=== PATIENT | female | born 1980 | race Caucasian/White ===

== ENCOUNTER 2019-11-10 07:48 | Emergency (ER) | payer MEDICAID ==
--- NOTE | 2019-11-10 08:28 | RADIOLOGY REPORT (SQ) ---
EXAM DESCRIPTION: CHEST SINGLE VIEW COMPLETED DATE/TIME: 11/10/2019 8:07 am REASON FOR STUDY: stroke symptoms COMPARISON: None. EXAM PARAMETERS: NUMBER OF VIEWS: One view. TECHNIQUE: Single frontal radiographic view of the chest acquired. RADIATION DOSE: NA LIMITATIONS: None. FINDINGS: LUNGS AND PLEURA: No opacities, masses or pneumothorax. No pleural effusion. MEDIASTINUM AND HILAR STRUCTURES: No masses. Contour normal. HEART AND VASCULAR STRUCTURES: Heart normal in size. Normal vasculature. BONES: No acute findings. HARDWARE: None in the chest. OTHER: Metallic density overlies the right chest, presumably external to the patient. IMPRESSION: No evidence of acute intrathoracic process. TECHNICAL DOCUMENTATION: JOB ID: [id number] 2010 [employer]- All Rights Reserved Reading location - IP/workstation name: [email or web address]
--- NOTE | 2019-11-10 08:31 | RADIOLOGY REPORT (SQ) ---
EXAM DESCRIPTION: CT HEAD WITHOUT COMPLETED DATE/TIME: 11/10/2019 8:17 am REASON FOR STUDY: stroke symptoms COMPARISON: None. TECHNIQUE: Axial images acquired through the brain without intravenous contrast. Images reviewed wi th bone, brain and subdural windows. Images stored on PACS. All CT scanners at this facility use dose modulation, iterative reconstruction, and/or weight based d osing when appropriate to reduce radiation dose to as low as reasonably achievable (ALARA). [facility]: Dose Right [facility]: CareDose [facility]: Dose Right [facility]: Teradose 4D [facility]: Labelby.me RADIATION DOSE: CT Rad equipment meets quality standard of care and radiation dose reduction techniq ues were employed. CTDIvol: 53.2 mGy. DLP: 1097 mGy-cm. mGy. LIMITATIONS: None. FINDINGS: VENTRICLES: Normal size and contour. CEREBRUM: No masses. No hemorrhage. No midline shift. No evidence for acute infarction. Normal gra y/white matter differentiation. No areas of low density in the white matter. CEREBELLUM: No masses. No hemorrhage. No alteration of density. No evidence for acute infarction. EXTRAAXIAL SPACES: No fluid collections. No masses. ORBITS AND GLOBE: No intra- or extraconal masses. Normal contour of globe without masses. CALVARIUM: No fracture. PARANASAL SINUSES: No fluid or mucosal thickening. SOFT TISSUES: No mass or hematoma. OTHER: No other significant finding. IMPRESSION: No evidence of acute intracranial process. Findings discussed with Melissa at 0824 hours on 11/10/2019. EVIDENCE OF ACUTE STROKE: NO. COMMENT: Quality ID # [id number]: Final reports with documentation of one or more dose reduction techniques (e.g., Automated exposure control, adjustment of the mA and/or kV according to patient size, use of iterative reconstruction technique) TECHNICAL DOCUMENTATION: JOB ID: [id number] 2010 [employer]- All Rights Reserved Reading location - IP/workstation name: [email or web address]
[2019-11-10] MEDS ORDERED: PREDNISONE 20 MG TABLET PO ONE (08:42)
[2019-11-10] MEDS ORDERED: VALACYCLOVIR HCL 500 MG TABLET PO ONE (08:42)
[2019-11-10] MEDS ORDERED: METHADONE HCL 10 MG TABLET PO ONE (08:43)
--- NOTE | 2019-11-10 08:52 | ER Document Report ---
ED General - General Chief Complaint: S/S of Possible Stroke Stated Complaint: POSSIBLE STROKE Time Seen by Provider: 11/10/19 08:29 TRAVEL OUTSIDE OF THE U.S. IN LAST 30 DAYS: No - HPI Notes: Patient is a 39-year-old female who presents to the emergency department. She just moved to the area. She noticed 2 days ago that the left side of her face was not moving. She went to an urgent care yesterday and was told she may be having a stroke. She denies any difficulty seeing, speaking, swallowing. M oving arms and legs without difficulty. No recent head trauma. Her primary concern is that she needs methadone. She has been on methadone for several years. 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 She has been stable on 150 mg. Patient states she has been tearful, hurting all over, jittery, nauseated. She went to the methadone clinic, did not have enough money to join. She has been told that she can come back on Friday. At that point she will have the money. - Related Data Allergies/Adverse Reactions: No Known Allergies Allergy (Verified 11/10/19 08:47) Home Medications: REMERON, EFFEXOR, HYDROXYZINE, MINIPRESS, HX OF METHADONE Past Medical History - General Information source: Patient - Social History Smoking Status: Current Every Day Smoker Frequency of alcohol use: None Drug Abuse: Bath salts, Heroin, Other - In remission per patient Family History: Reviewed & Not Pertinent Patient has suicidal ideation: No Patient has homicidal ideation: No Psychiatric Medical History: Reports: Hx Anxiety, Hx Bipolar Disorder Review of Systems - Review of Systems Constitutional: See HPI Gastrointestinal: See HPI Neurological/Psychological: See HPI Physical Exam - Vital signs Vitals: Pulse Ox 95 11/10/19 07:52 - Notes Notes: Vital signs reviewed, please refer to chart. Head is normocephalic, atraumatic. Pupils equal round, reactive to light. Neck is supple without meningismus. Heart is regular rate and rhythm. Lungs are clear to auscultation bilaterally. Abdomen is soft, nontender, normoactive bowel sounds throughout. Extremities without cyanosis, clubbing. Posterior calves are nontender. Peripheral pulses are equal. Skin is warm and dry. Patient has an obvious facial nerve palsy on the left, with inability to raise her eyebrow, close her eye, smile. The remainder of cranial nerves II to XII are grossly intact without focal neurological deficits. Patient is awake alert, oriented x3. Strength was 5/5 all upper and lower extremities. Sensation is intact. Intact [id number], rapid on movements, [id number]. Reflexes are symmetrical. No pronator drift. Course - Re-evaluation Re-evalutation: 11/10/19 08:51 Patient presents to the emergency department for evaluation. Based on protocol she was initially called as a stroke alert. I went in to evaluate the patient. She is a clear Stout's palsy. Stroke orders were canceled. She did already have a CT scan of the head, which was reasonable, which was found to be unremarkable. Patient is stable at this time. Given that her onset was only in the last 2 days, I did ahead and order Valtrex and prednisone. Patient also was given 1 dose of methadone. I explained to her that I am not licensed to prescribe it, but I could give her 1 dose here. She is already planning on going to the methadone clinic on Friday. At this point she is stable. We will monitor for response to methadone. 11/10/19 10:20 Patient stable. Feeling improved, no further vomiting. Given single dose of methadone, she is to follow-up as discussed, return to the ED with worsening. - Vital Signs Vital signs: Temp Pulse Resp BP Pulse Ox 17 120/93 H 95 11/10/19 09:31 11/10/19 09:31 11/10/19 09:31 - Laboratory Result Diagrams: 11/10/19 08:32 11/10/19 08:32 - Diagnostic Test Radiology reviewed: Reports reviewed Radiology results interpreted by me: 11/10/19 08:52 Chest X-Ray 11/10/19 07:54 IMPRESSION: No evidence of acute intrathoracic process. Head CT 11/10/19 07:54 IMPRESSION: No evidence of acute intracranial process. Findings discussed with Melissa at 0824 hours on 11/10/2019. EVIDENCE OF ACUTE STROKE: NO. - EKG Interpretation by Me Additional EKG results interpreted by me: 11/10/19 08:53 Sinus mechanism with a rate of 100 bpm. Normal axis and intervals. No acute ST changes concerning for ischemia or infarction. Discharge - Discharge Clinical Impression: Stout palsy, Methadone withdrawal Condition: Stable Disposition: HOME, SELF-CARE Instructions: Stout's Palsy ([facility]), Steroid Medication Additional Instructions: Take medications as prescribed. Follow-up with primary care as well as the methadone clinic this week. Return to the emergency department with worsening or new concerning symptoms of any sort. Prescriptions: Prednisone [Deltasone 20 mg Tablet] See Protocol PO DAILY 5 Days #20 tablet Valacyclovir HCl [Valtrex] 1,000 mg PO BID #13 tablet
[2019-11-10] MEDS ORDERED: ONDANSETRON HCL INJ/PF 4 MG/2 ML SDV IV ONE (08:55)
[2019-11-10 10:53] VITALS: BP 123/81
--- NOTE | 2019-11-10 13:04 | EKG REPORT ---
SEVERITY:- OTHERWISE NORMAL ECG - SINUS TACHYCARDIA : Confirmed by: Dixon Dubois MD 10-Nov-2019 13:03:43
== END 2019-11-10 10:50 | disposition home or self-care (01) ==
LOC: ER 07:48
DX: G51.0 Bell's palsy (principal); F15.93 Other stimulant use, unspecified with withdrawal; M79.10 Myalgia, unspecified site; R11.0 Nausea; F17.200 Nicotine dependence, unspecified, uncomplicated
CPT/HCPCS: 93005; 82962; 71045; 70450; 93010; J7512; J2405

== ENCOUNTER 2019-11-12 13:31 | Emergency (ER) | payer MEDICAID ==
[2019-11-12 13:39] VITALS: BP 144/89
[2019-11-12] MEDS ORDERED: METHADONE HCL 10 MG TABLET PO ONE (14:07)
--- NOTE | 2019-11-12 14:16 | ER Document Report ---
HPI - HPI Patient complains to provider of: Drug addiction methadone withdrawal Time Seen by Provider: 11/12/19 13:47 Onset: Other - Last dose November 10, 2019 by ER Onset/Duration: Gradual Quality of pain: Achy Severity: Moderate Pain Level: 3 Context: 39-year-old female presented to ED for complaint of methadone withdrawal. She states that she was at a methadone clinic and [facility] she moved to [place] after she had set up with a methadone clinic in [place]. She states when she went to the methadone clinic in [place] on 04 November they refused to sign her up and give her the methadone because she had benzos in her system. She states she would then went to [facility]. They stated they could not get her signed until 2 days ago and they did not finish the whole intake and then she went back today and they told her that the doctor they could prescribe the methadone was not there today it would not be until Friday. Patient has verbalized that she will be moving back to [facility] either tonight or tomorrow so that she can get to the methadone clinic tomorrow. She states she is already called the clinic and they know that she is coming. She states she will not be back to this ER for more methadone as she knows that she needs to go to the methadone clinic. Associated Symptoms: None Exacerbated by: Denies Relieved by: Denies Similar symptoms previously: Yes Recently seen / treated by doctor: Yes - ROS ROS below otherwise negative: Yes - CONSTITUTIONAL Constitutional: DENIES: Fever, Chills - EENT EENT: DENIES: Sore Throat, Ear Pain, Nasal Drainage-Clear, Nasal Drainage- Purulent, Congestion, Eye problems - NEURO Neurology: REPORTS: Headache. DENIES: Weakness, Vision blurred, Dizzinesss / Vertigo - CARDIOVASCULAR Cardiovascular: DENIES: Chest pain - RESPIRATORY Respiratory: DENIES: Trouble Breathing, Coughing - GASTROINTESTINAL Gastrointestinal: DENIES: Abdominal Pain, Nausea, Patient vomiting, Diarrhea, Constipation, Black / Bloody Stools - URINARY Urinary: DENIES: Dysuria, Urgency, Frequency - REPRODUCTIVE Reproductive: DENIES: : - MUSCULOSKELETAL Musculoskeletal: DENIES: Extremity pain, Back Pain, Neck Pain, Swelling - DERM Skin Color: Normal Skin Problems: None Past Medical History - General Information source: Patient - Social History Smoking Status: Current Every Day Smoker Cigarette use (# per day): Yes - Half pack a day Family History: Reviewed & Not Pertinent Psychiatric Medical History: Reports: Hx Anxiety, Hx Bipolar Disorder Vertical Provider Document - INFECTION CONTROL TRAVEL OUTSIDE OF THE U.S. IN LAST 30 DAYS: No Course - Re-evaluation Re-evalutation: 11/12/19 22:05 Dr. flowers wrote an order for a methadone while in the emergency room. Patient was instructed that she needed to return methadone clinic for further doses that we could not dispense any more doses. Patient states she is going back to [facility] or to the methadone clinic either [facility] or tomorrow. Patient was discharged home. - Vital Signs Vital signs: Temp Pulse Resp BP Pulse Ox 98.4 F 87 20 144/89 H 99 11/12/19 13:38 11/12/19 13:38 11/12/19 13:38 11/12/19 13:38 11/12/19 13:38 Discharge - Discharge Clinical Impression: Methadone withdrawal Condition: Stable Disposition: HOME, SELF-CARE Additional Instructions: You were seen today for methadone withdrawal. You state you plan to go back to [facility] tomorrow because it is too hard for you to get into a methadone clinic in [place]. You stated that you went to the methadone clinic in [place] and they refused to see you due to benzos in your system. He states she then went to the methadone clinic in [place] and they saw you on Friday and told you that she had to come back today when you were back today there was not a doctor available to give you a intake and medication so he came back to the emergency room today for your methadone today. You stated the methadone clinic would not be able to see you till Friday and you were suffering at this time. You state you will be leaving for [place] either or tomorrow to get yourself into the methadone clinic tomorrow. These be sure to follow-up with this plan so that she can get you methadone because it can cause a lot of side effects when you stop suddenly FOLLOW-UP CARE: If you have been referred to a physician for follow-up care, call the physicians office for an appointment as you were instructed or within the next two days. If you experience worsening or a significant change in your symptoms, notify the physician immediately or return to the Emergency Department at any time for re-evaluation. Forms: Elevated Blood Pressure, Smoking Cessation Education
== END 2019-11-12 14:42 | disposition home or self-care (01) ==
LOC: ER 13:31
DX: F15.93 Other stimulant use, unspecified with withdrawal (principal); F17.210 Nicotine dependence, cigarettes, uncomplicated
CPT/HCPCS: 99283

== ENCOUNTER 2019-11-15 13:30 | Emergency (ER) | payer SELFPAY ==
[2019-11-15 14:17] VITALS: BP 123/84
--- NOTE | 2019-11-15 14:33 | ER Document Report ---
HPI - HPI Patient complains to provider of: Methadone withdrawal Time Seen by Provider: 11/15/19 14:25 Onset: Other Onset/Duration: Intermittent Quality of pain: Cramping Pain Level: 3 Context: 39-year-old female presented to ED for need for methadone again. She states she has not been able to move to [place] as she had stated the last time I saw her. She was given a dose of methadone that day but I spoke with the covering physician at this time as she needs to get it from the methadone clinic. Patient is alert oriented respirations regular nonlabored speaking in full sentences. She does have Vistaril but she states that will not help with her diarrhea and stomach cramps. Does have an appointment with the methadone clinic tomorrow. Associated Symptoms: Other - Stomach cramping and diarrhea Exacerbated by: Denies Relieved by: Denies Similar symptoms previously: Yes Recently seen / treated by doctor: Yes - ROS ROS below otherwise negative: Yes - CONSTITUTIONAL Constitutional: DENIES: Fever, Chills - EENT EENT: DENIES: Sore Throat, Ear Pain, Nasal Drainage-Clear, Nasal Drainage- Purulent, Congestion, Eye problems - NEURO Neurology: DENIES: Headache, Weakness, Vision blurred, Dizzinesss / Vertigo - CARDIOVASCULAR Cardiovascular: DENIES: Chest pain - RESPIRATORY Respiratory: DENIES: Trouble Breathing, Coughing - GASTROINTESTINAL Gastrointestinal: REPORTS: Abdominal Pain, Diarrhea - URINARY Urinary: DENIES: Dysuria, Urgency, Frequency - REPRODUCTIVE Reproductive: DENIES: :, Postmenopausal, Abnormal bleeding / discharge - MUSCULOSKELETAL Musculoskeletal: DENIES: Extremity pain, Back Pain, Neck Pain, Swelling - DERM Skin Color: Normal Skin Problems: None Past Medical History - General Information source: Patient - Social History Smoking Status: Current Every Day Smoker Cigarette use (# per day): Yes - Half pack Chew tobacco use (# tins/day): No Smoking Education Provided: Yes Frequency of alcohol use: None Drug Abuse: None Lives with: Family Family History: Reviewed & Not Pertinent Patient has suicidal ideation: No Patient has homicidal ideation: No - Past Medical History Cardiac Medical History: Reports: None Pulmonary Medical History: Reports: None EENT Medical History: Reports: None Neurological Medical History: Reports: None Endocrine Medical History: Reports: None Renal/ Medical History: Reports: Hx Ovarian Cysts Malignancy Medical History: Reports: None GI Medical History: Reports: None Musculoskeletal Medical History: Reports None Skin Medical History: Reports None Psychiatric Medical History: Reports: Hx Anxiety, Hx Bipolar Disorder, Other - Methadone for drug addiction Traumatic Medical History: Reports: None Infectious Medical History: Reports: None Past Surgical History: Reports: Hx Gynecologic Surgery - Ovarian cyst rupture removal Vertical Provider Document - CONSTITUTIONAL Agree With Documented VS: Yes Exam Limitations: No Limitations General Appearance: WD/WN, No Apparent Distress - INFECTION CONTROL TRAVEL OUTSIDE OF THE U.S. IN LAST 30 DAYS: No - HEENT HEENT: Atraumatic, Normal ENT Exam, Normocephalic, PERRLA - NECK Neck: Normal Inspection, Supple, Thyroid Normal - RESPIRATORY Respiratory: Breath Sounds Normal, No Respiratory Distress, Chest Non-Tender - CARDIOVASCULAR Cardiovascular: Regular Rate, Regular Rhythm, No Murmur - GI/ABDOMEN Gastrointestinal: Abdomen Soft, Abdomen Tender, Normal Bowel Sounds - MUSCULOSKELETAL/EXTREMETIES Musculoskeletal/Extremeties: MAEW, FROM, Non-Tender - NEURO Level of Consciousness: Agitated - Due to not getting methadone Motor/Sensory: No Motor Deficit, No Sensory Deficit Deep Tendon Reflexes: 2+ - DERM Integumentary: Warm, Dry, No Rash Course - Re-evaluation Re-evalutation: 11/15/19 15:[address] Arcos who stated it is not appropriate to give her methadone in the clinic she is already been given the methadone 2 times due to her drug addiction she needs to follow-up with the methadone clinic. She do that the clinic close to 2:00 and she did not make arrangements to try to go in early to get her methadone. She also had stated she was going to move to [place] and did not move. We cannot give her further doses of methadone. - Vital Signs Vital signs: Temp Pulse Resp BP Pulse Ox 98.8 F 105 H 17 123/84 100 11/15/19 14:13 11/15/19 14:13 11/15/19 14:13 11/15/19 14:13 11/15/19 14:13 Discharge - Discharge Clinical Impression: Methadone withdrawal Condition: Stable Disposition: HOME, SELF-CARE Additional Instructions: You were seen today for methadone withdrawal. You were seen a couple days ago for the same thing. The covering physician at that time did give you 1 dose of methadone as you stated you go to be moving back to [place] that day to get back into the methadone clinic. You now state you were not able to move because you did not have a ride even though at that time you stated you had plans and everything was arranged. You now state she needed another dose of methadone because she cannot get into the methadone clinic till tomorrow I have spoken with the covering physician as well as the ER director and they stated that there will be no further doses of methadone as it is not appropriate to be medicating you with methadone in the emergency room. I have offered you Zofran clonidine and diarrhea medications and you stated you do not want any of these you just wanted the methadone and that you had Vistaril at home. FOLLOW-UP CARE: If you have been referred to a physician for follow-up care, call the physicians office for an appointment as you were instructed or within the next two days. If you experience worsening or a significant change in your symptoms, notify the physician immediately or return to the Emergency Department at any time for re-evaluation. Forms: Smoking Cessation Education
== END 2019-11-15 15:16 | disposition home or self-care (01) ==
LOC: ER 13:30
DX: F11.23 Opioid dependence with withdrawal (principal); R19.7 Diarrhea, unspecified; R10.9 Unspecified abdominal pain; F17.210 Nicotine dependence, cigarettes, uncomplicated
CPT/HCPCS: 99283